=== PATIENT | female | born 1990 | race Caucasian/White ===

== ENCOUNTER 2017-12-29 19:30 | Emergency (ER) | payer BC, MEDICAID ==
[2017-12-29 21:06] VITALS: BP 148/95; PULSE 83; RESP 16; TEMP 97.6; O2SAT 98
--- NOTE | 2017-12-29 21:29 | ED PDOC ---
HPI: Female Pain Time Seen by Provider: 12/29/17 21:27 Chief Complaint (Nursing): Female Genitourinary Chief Complaint (Provider): ABDOMINAL PAIN History Per: Patient (27 Y/O FEMALE HERE APPROX 8 WEEK GESTATION HERE WITH LOWER ABDOMINAL PAIN OCCURRING INTERMITTENTLY SINCE 9AM. DENIES ANY VOMITING/ DIARRHEA/FEVERS/CHILLS. HAS H/O CXN. DENIES ANY VAGINAL BLEEDING.) Past Medical History Reviewed: Historical Data, Nursing Documentation, Vital Signs Vital Signs: Last Vital Signs Temp 97.6 F 12/29/17 21:05 Pulse 83 12/29/17 21:05 Resp 16 12/29/17 21:05 BP 148/95 H 12/29/17 21:05 Pulse Ox 98 12/29/17 21:05 - Family History Family History: States: No Known Family Hx - Home Medications Home Medications: Ambulatory Orders Medication Instructions Recorded Cephalexin [Keflex] 500 mg PO QID #20 capsule 12/29/17 - Allergies Allergies/Adverse Reactions: Allergies Allergy/AdvReac Type Severity Reaction Status Date / Time No Known Allergies Allergy Verified 12/29/17 21:07 Review of Systems ROS Statement: Except As Marked, All Systems Reviewed And Found Negative Physical Exam - Reviewed Nursing Documentation Reviewed: Yes Vital Signs Reviewed: Yes - Physical Exam Appears: Positive for: Well, Non-toxic, No Acute Distress Head Exam: Positive for: ATRAUMATIC, NORMAL INSPECTION, NORMOCEPHALIC Skin: Positive for: Normal Color, Warm, DRY Eye Exam: Positive for: EOMI, Normal appearance, PERRL ENT: Positive for: Normal ENT Inspection Neck: Positive for: Normal, Painless ROM Cardiovascular/Chest: Positive for: Regular Rate, Rhythm Respiratory: Positive for: CNT, Normal Breath Sounds Gastrointestinal/Abdominal: Positive for: Normal Exam, Bowel Sounds, Soft, Tenderness (RLQ PAIN) Pelvic Exam: Positive for: Speculum Exam Normal (cervix closed. no vaginal bleeding), Other (mild left adnexal tenderness. ) Back: Positive for: Normal Inspection Extremity: Positive for: Normal ROM Neurologic/Psych: Positive for: Alert, Oriented - Laboratory Results Result Diagrams: 12/29/17 22:13 12/29/17 22:14 - ECG O2 Sat by Pulse Oximetry: 98 - Progress ED Course And Treament: keflex 500mg x 1 dose for UTI us pelvic: IMPRESSION: No cardiac activity is identified suggesting demise Thank you for allowing us to participate in the care of your patient. Dictated and Authenticated by: Leida Eller, appendix: not visualized. patient re-examined with no rlq pain noted d/w dr. mills Disposition - Clinical Impression Clinical Impression: demise, UTI (urinary tract infection) - Patient ED Disposition Is Patient to be Admitted: No - Disposition Disposition: Routine/Home Disposition Time: 23:38 Condition: FAIR Prescriptions: Cephalexin [Keflex] 500 mg PO QID #20 capsule Instructions: Threatened Miscarriage (ED), Urinary Tract Infection in Women (DC ) Forms: [employer] ([place])
[2017-12-29 22:13] LABS: SQUAMOUS EPITHIAL 17 /hpf (0-5); URINE BACTERIA OCC (<OCC); URINE BILIRUBIN NEGATIVE (NEGATIVE); URINE BLOOD SMALL (NEGATIVE); URINE CLARITY TURBID (Clear); URINE COLOR YELLOW (YELLOW); URINE GLUCOSE (UA) NEG (Normal); URINE LEUKOCYTE ESTERASE TRACE Leu/uL (Negative); URINE NITRATE NEGATIVE (NEGATIVE); URINE PROTEIN 30 mg/dL (NEGATIVE); URINE UROBILINOGEN 0.2-1.0 mg/dL (0.2-1.0)
[2017-12-29 22:17] LABS: BASO % 0.5 % (0.0-2.0); EOS # 0.1 K/uL (0.0-0.7); EOS % 1.8 % (0.0-4.0); LYMPH # 3.1 K/uL (1.0-4.3); LYMPH % 46.2 % (20.0-40.0); MEAN CELL VOLUME 94.5 fl (81.0-99.0); MEAN CORPUSCULAR HEMOGLOBIN 30.7 pg (27.0-31.0); MEAN CORPUSCULAR HGB CONC 32.5 g/dL (33.0-37.0); MEAN PLATELET VOLUME 7.9 fl (7.2-11.7); MONO # 0.6 K/uL (0.0-0.8); MONO % 8.8 % (0.0-10.0); NEUT # 2.8 K/uL (1.8-7.0); NEUT % 42.7 % (50.0-75.0); NRBC % 0.1 % (0.0-0.0); RBC 3.57 Mil/uL (3.80-5.20); RED CELL DISTRIBUTION WIDTH 13.4 % (11.5-14.5); WHITE BLOOD COUNT 6.7 K/uL (4.8-10.8)
[2017-12-29 23:07] LABS: BLOOD UREA NITROGEN 21 mg/dl (7-17); CALCIUM 9.4 mg/dL (8.4-10.2); GFR AFRICAN-AMERICAN > 60; GFR NON-AFRICAN AMERICAN > 60
--- NOTE | 2017-12-30 14:02 | US ---
PROCEDURE: OB Pelvic Ultrasound HISTORY: LOWER ABDOMINAL PAIN COMPARISON: None available. FINDINGS: LMP: 10/22/2017 Prior examinations from the current : None TECHNIQUE: Real-time 2D imaging, duplex and color Doppler. FINDINGS: Cardiac activity: Absent Measurements: [place] rump length: 1.56 cm Gestational age based on CRL 8 weeks Gestational age 11 weeks based on gestational sac measurement 5.26 cm Gestational age derived from LMP: 9 weeks 5 days GERALD based on LMP: 07/29/2018 GERALD based on biometry: 08/25/2018 Gestational concordance documented Yolk sac not identified Uterus: Unremarkable. No Cervical abnormalities: Negative examination for cervical dilatation or effacement. Closed cervix measuring 4.29 cm Subchorionic hemorrhage: None UTERUS: 6.2 x 8.9 x 13.5 cm. ADNEXA: Right: 2.9 x 4.2 x 5.3 cm. Normal Doppler arterial waveform documented. Left: 2.3 x 3.7 x 4.6 cm. Normal Doppler arterial waveform documented Fluid in the cul-de-sac: None OTHER FINDINGS: None. IMPRESSION: Intrauterine demise based on absence of cardiac activity.
--- NOTE | 2017-12-30 14:07 | US ---
PROCEDURE: Right lower quadrant ultrasound HISTORY: EVALUATE RLQ APPENDIX PLEASE COMPARISON: 2017. Ob ultrasound. TECHNIQUE: Standard protocol for this study/examination. FINDINGS: Graded compression technique right lower quadrant. The appendix is not visualized. No abnormal fluid collections or masses are identified. IMPRESSION: Nonvisualization the appendix/nondiagnostic study in the assessment of clinically suspected appendicitis.
== END 2017-12-30 00:10 | disposition home or self-care (01) ==
LOC: H.ER 19:30
DX: O23.41 Unspecified infection of urinary tract in pregnancy, first trimester (principal); Z3A.08 8 weeks gestation of pregnancy